=== PATIENT | female | born 1985 | race Caucasian/White ===

== ENCOUNTER 2021-02-05 09:05 | Emergency (ER) | payer OTHER ==
[~2021-02-05] VITALS: Ht 162.6 cm; Wt 57.3 kg
[2021-02-05] MEDS ORDERED: LOES1TAB12 PO (09:13)
[2021-02-05] MEDS ORDERED: VITMTA PO (09:13)
[2021-02-05] MEDS ORDERED: KETOROLAC 30 MG/ML 1ML VIAL IV ONE (10:15)
[2021-02-05] MEDS ORDERED: NS 1,000 ML IV ONE (10:15)
[2021-02-05] MEDS ORDERED: ONDANSETRON 4MG/2ML VIAL IV ONE (10:15)
[2021-02-05 10:38] LABS: BASO # 0.1 10^3/uL (0.0-0.2); BASO % 0.9 % (0.0-1.0); EOS # 0.2 10^3/uL (0.0-0.5); EOS % 1.8 % (0.0-3.0); HEMATOCRIT 46.4 % (36.0-47.0); HEMOGLOBIN 15.4 g/dl (12.0-15.5); LYMPH # 3.3 10^3/uL (1.5-5.0); LYMPH % 34.3 % (24.0-44.0); MEAN CORPUSCULAR HEMOGLOBIN 32.6 pg (27.0-33.0); MEAN CORPUSCULAR HGB CONC 33.2 g/dl (32.0-36.5); MEAN CORPUSCULAR VOLUME 98.1 fl (80.0-96.0); MONO # 0.6 10^3/uL (0.0-0.8); MONO % 6.3 % (2.0-8.0); NEUTROPHILS # 5.5 10^3/uL (1.5-8.5); NEUTROPHILS % 56.5 % (36.0-66.0); PLATELET COUNT, AUTOMATED 266 10^3/uL (150-450); RED BLOOD COUNT 4.73 10^6/uL (4.00-5.40); WHITE BLOOD COUNT 9.7 10^3/uL (4.0-10.0)
[2021-02-05 11:05] LABS: ALBUMIN 4.1 GM/DL (3.2-5.2); BILIRUBIN,DIRECT 0.2 MG/DL (0.0-0.2); BILIRUBIN,TOTAL 0.8 MG/DL (0.2-1.0); TOTAL PROTEIN 7.5 GM/DL (6.4-8.2)
--- NOTE | 2021-02-05 11:13 | REP ---
INDICATION: ruq pain/diarrhea. COMPARISON: None. TECHNIQUE: Real-time sonographic evaluation of right upper quadrant performed. FINDINGS: The gallbladder demonstrates no evidence of intraluminal sludge or calculi, wall thickening or pericholecystic fluid. There is a 2 mm polyp along the inner wall of the gallbladder. There is no intrahepatic or extrahepatic biliary dilatation, common bile duct measures 6 mm in maximum diameter. The liver demonstrates homogeneous echotexture with no gross mass. The pancreas demonstrates homogeneous echotexture with no gross mass. The right kidney demonstrates no hydronephrosis, with a normal size of 11.6 cm in length. No free fluid is seen. IMPRESSION: Negative right upper quadrant ultrasound, except for a 2 mm gallbladder polyp. <Electronically signed by Filippo Hamilton > 02/05/21 [id number]
[2021-02-05] MEDS ORDERED: ISOVUE-370 76% 100ML VIAL As Ordered ONE (11:26)
--- NOTE | 2021-02-05 12:00 | REP ---
INDICATION: epigastric pain COMPARISON: None. TECHNIQUE: CT Scan of the abdomen and pelvis was performed with intravenous administration of 100 cc of Isovue 370, without oral contrast. Sagittal and coronal reconstruction images are performed. FINDINGS: Lung bases: Unremarkable. Liver: Normal Gallbladder: Unremarkable. Spleen: Normal. Adrenals: Normal. Pancreas: Normal. Kidneys: Normal. Small and large bowel: Unremarkable. Free fluid: There is trace free fluid in the pelvis. Abdominal aorta: No aneurysm or dissection. Adenopathy: None. Appendix: Prior appendectomy. Osseous structures: Unremarkable. Pelvis: In the right adnexa there is a 6.3 cm cystic structure likely arising from the right ovary.. IMPRESSION: Right adnexal cyst likely rising from the right ovary, 6.3 cm in maximum diameter. Trace free fluid in the pelvis. <Electronically signed by Filippo Hamilton > 02/05/21 [id number]
--- NOTE | 2021-02-05 12:40 | REP ---
INDICATION: pain. COMPARISON: None. TECHNIQUE: Three views of the right shoulder are presented. FINDINGS: The right glenohumeral and acromioclavicular joints are normally aligned. Periarticular soft tissues are unremarkable. The visualized right hemithorax is unremarkable. IMPRESSION: Negative radiographs of the right shoulder. <Electronically signed by Everett Vyas > 02/05/21 [id number]
--- NOTE | 2021-02-05 13:38 | REP ---
INDICATION: cyst right ovary/ r/o torsion. COMPARISON: CT abdomen and pelvis today. TECHNIQUE: Transabdominal scanning performed. FINDINGS: Uterine dimensions are 9.6 x 4.9 x 6.5 cm. Endometrial echo is 4 mm in AP dimension and centrally placed. The bladder measures 4.8 x 2.6 x 7.6cm. The right ovary has dimensions of 7.7 x 5.8 x 7.3 cm. It's Doppler flow is normal with a resistive index of 0.47. The left ovary dimensions are 2.2 x 1.6 x 1.6 cm. It's Doppler flow was normal with resistive index of 0.62. A simple anechoic cyst of the right ovary measures 6.2 x 4.6 x 6.3 cm. No free fluid is seen in the cul-de-sac. IMPRESSION: Large simple cyst right ovary 6.3 cm. No torsion. No free fluid visualized. <Electronically signed by Filippo Hamilton > 02/05/21 [id number]
[2021-02-05] MEDS ORDERED: ONDA4TAB6 PO (14:11)
[2021-02-05 14:19] VITALS: BP 122/81
--- NOTE | 2021-02-05 15:04 | ED PDOC ---
Post-Departure Follow-Up pelvic us faxed to dr cordoba for fu Chandni Taylor MD Feb 05, 2021 15:04
== END 2021-02-05 14:22 | disposition home or self-care (01) ==
LOC: M ED 09:05
DX: N83.201 Unspecified ovarian cyst, right side (principal); R11.2 Nausea with vomiting, unspecified; R19.7 Diarrhea, unspecified; Z79.3 Long term (current) use of hormonal contraceptives; Z88.5 Allergy status to narcotic agent; Z90.89 Acquired absence of other organs
CPT/HCPCS: 73030; 74177; 76705; 76856; 80047; 80076; 81001; 83690; 84702; 85025; 93976; 96374; 96375; 99284; J1885; J2405; Q9967

== ENCOUNTER → 2022-05-02 | Outpatient (CLI) | payer OTHER ==
[~2022-05-02] MED LIST: LOES1TAB12 PO; ONDA4TAB6 PO; VITMTA PO
== END ==
LOC: M WHC 12:59
PROVIDERS: ATTEND Nurse Practitioner Family
DX: N92.0 Excessive and frequent menstruation with regular cycle (principal)

== ENCOUNTER → 2022-07-31 | Outpatient (CLI) | payer OTHER | LOC: M RAD 11:59 | PROVIDERS: ATTEND Nurse Practitioner Family | DX: M79.642 Pain in left hand (principal) ==

== ENCOUNTER → 2022-10-15 | Outpatient (CLI) | payer OTHER ==
[~2022-10-15] MED LIST changes: +ASHW300C PO; +CLAR10CA3 PO; +LO LTAB
== END ==
LOC: M LABSMTC 11:33
PROVIDERS: ATTEND Anesthesiology
DX: Z01.812 Encounter for preprocedural laboratory examination (principal); Z20.822 Contact with and (suspected) exposure to COVID-19

== ENCOUNTER 2022-10-17 06:53 | Day surgery (SDC) | payer OTHER ==
[~2022-10-17] VITALS: Ht 162.6 cm; Wt 64.0 kg
[~2022-10-17 06:53] MED LIST changes: +LIDOCAINE W/EPINEPHRINE 1% 20ML VIAL XX ONE; +SODIUM BICARBONATE 8.4% INJ 50MEQ 50ML VIAL XX ONE
[2022-10-17] MEDS ORDERED: BACITRACIN OINTMENT 30GM TUBE As Ordered ONE (08:22)
[2022-10-17 08:37] VITALS: BP 117/77
== END 2022-10-17 08:51 | disposition home or self-care (01) ==
LOC: M SDC 06:53
PROVIDERS: ATTEND Orthopaedic Surgery Hand Surgery
DX: M67.442 Ganglion, left hand (principal); Z79.899 Other long term (current) drug therapy